=== PATIENT | male | born 2005 | race Asian ===

== ENCOUNTER 2023-04-04 02:23 | Outpatient (CLI) | payer BC, SELFPAY | END 2023-04-04 02:24 | disposition home or self-care (01) | LOC: AMB 04-07 12:06 | PROVIDERS: Visit Provider Family Medicine | DX: G40.909 Epilepsy, unspecified, not intractable, without status epilepticus (principal) | CPT/HCPCS: A0425; A0427 ==

== ENCOUNTER 2023-04-04 02:48 | Emergency (ER) | payer BC, SELFPAY ==
[2023-04-04 02:54] VITALS: BP 138/71; PULSE 105; RESP 20; TEMP 36.7; O2SAT 97; BMI 21.6
--- NOTE | 2023-04-04 03:13 | CRLHL7_ITS ---
For Patients: As a result of the Century Cures Act, medical imaging exams and procedure reports are released immediately into your electronic medical record. You may view this report before your referring provider. If you have questions, please contact your health care provider. Indication: Trauma related to seizure activity. Technique: CT of the facial bones was performed. Imaging was acquired in the axial plane. Contrast was not administered. Imaging was acquired from above the frontal sinuses through below the hyoid bone. Sagittal and coronal reformatted imaging was performed. Please note that all CT scans at this facility use dose modulation, iterative reconstruction, and/or weight-based dosing when appropriate to reduce radiation dose to as low as reasonably achievable. Comparison: None Findings: There is a comminuted displaced fracture of the right mandibular condyle, head and neck. No additional fractures are identified. The globes are intact. There is minor incidental paranasal sinus mucosal inflammatory disease Impression: 1. There is a comminuted displaced fracture of the right mandibular condyle, head and neck. No additional fractures. 2. Mild chronic appearing paranasal sinus mucosal inflammatory disease. Please note that all CT scans at this facility use dose modulation, iterative reconstruction, and/or weight-based dosing when appropriate to reduce radiation dose to as low as reasonably achievable. Dictated by Rambo Bullock MD @ 04/04/2023 4:02:28 AM (Electronically Signed)
--- NOTE | 2023-04-04 03:17 | ED.GENADULT ---
HPI - General Adult General Chief complaint: Seizure Stated complaint: seizure Time Seen by Provider: 04/04/23 02:58 Source: patient and EMS Mode of arrival: EMS History of Present Illness HPI narrative: 17-year-old male with known previous history of seizure disorder presents to the emergency department after what appears to have been a seizure while in the shower. Other members of his dorm found him on the ground, confused with of bloodied chin and lip. Patient reports that he has not taken his seizure medications since Friday which is 4 days ago. His 1st seizure was in 2018, his seizures may be set off by excessive heat per his report. He has been fully evaluated for the seizures including by Neurology, has had an EEG and CT scan per his description. He has been on the Lamictal since original diagnosis and reports that he has been on escalating doses, under the management of his neurologist. He does not give me clear rationale as to why he stopped taking his medication other than he just seems to have for gotten. His father was on the phone at the time and it seemed as though patient was trying to be discrete. I will re-approached the subject. He denies any fevers, neck pain, no recent illness that may have set things off. He was noted to be confused by the other members of his dorm but this was already improving significantly by the time of EMS arrival. Patient states that he feels a little foggy now but is overall feeling much better. He does note a cut to the bottom of his chin, a bit on the lower left lip as well and a gash out of his right forearm. No back pain, no neck pain, no headache. He does have a little bit of tenderness opening his jaw and notes some swelling to his right cheek area as well. No vision changes, no difficulty moving his eyes, no numbness tingling or other neurological deficits. Denies alcohol or drug use. Has been eating and drinking well. Past medical history notable for seizure disorder, home meds are Lamictal 150 mg twice daily and Zoloft 50 mg once daily. He is from [facility], no recent pertinent travel. No known illness exposures. ROS notable for the skin, HEENT and neurological changes as described above. Otherwise denies times 12 systems. Related Data Home Medications Medication Instructions Recorded Confirmed lamotrigine 150 mg tablet 150 mg PO BID 04/04/23 04/04/23 (Lamictal) sertraline 50 mg tablet (Zoloft) 50 mg PO DAILY 04/04/23 04/04/23 Previous Rx's Medication Instructions Recorded chlorhexidine gluconate 0.12 % 15 ml buccal BID #240 mL 04/04/23 mouthwash (Paroex Oral Rinse) Allergies Allergy/AdvReac Type Severity Reaction Status Date / Time No Known Drug Allergies Allergy Verified 04/04/23 02:57 PFSH PFS Medical History Anxiety ?F41.9 - Anxiety disorder, unspecified (ICD-10) Epilepsy ?G40.909 - Epilepsy, unspecified, not intractable, without status epilepticus (ICD-10) Social History Smoking Status: Current every day smoker Do you use any of these nicotine containing products: Vaping Products Second hand tobacco smoke exposure: Yes How often do you have a drink containing alcohol: never How often do you have six or more drinks on one occasion: Never AUDIT-C Alcohol total score: 0 Non-prescribed substance use: marijuana (any form) Exam Const: Vital Signs, click to edit/add: Vital Signs - 24 hr 04/04/23 02:54 04/04/23 03:18 04/04/23 04:18 Temperature 98.0 F 98.0 F Pulse Rate [Right Pulse Oximeter] 105 H 84 Respiratory Rate 20 20 Blood Pressure [Ri ght Upper Arm] 138/71 125/81 Pulse Oximetry 97 98 98 Oxygen Delivery Me thod Room Air Room Air Documenting provider has reviewed patient's vital signs: yes Common normals: no apparent distress, oriented x3 and alert Orientation/consciousness: Yes awake Other: Friendly and cooperative. Does seem mildly mentally foggy but has good insight into this and clarifies his answers when needed such as his Lamictal dosing and timing. HENMT: Common normals: normocephalic and TM's normal bilaterally Head and scalp: normocephalic Tympanic membrane: TM's normal bilaterally Other: Jaw does open with much difficulty and close though tender, without crepitus, but with significant difficulty. Mandible feels intact, but very tender on the right side There is a subtle dental fracture of the left upper central incisor, only the bottom 5% of the tooth. No root exposed. Superficial gash is, non bleeding on the sides of the tongue. 3 mm hemostatic laceration to the inner lip. 3 mm laceration, not through and through to the outer lip, oozing slightly. 3.5 cm diagonal laceration, full skin thickness to the underside of the chin. Gapes to about 6 mm with facial movement. Swelling of the right zygomatic arch with point bony tenderness extending into the right orbital area. Extraocular movements are fully intact. Eye: Common normals: PERRL, EOMs intact bilaterally and conjunctivae normal General eye: normal appearance of both eyes Conjunctiva: conjunctiva(e) normal Pupil: PERRL Neck & C-Spine: Common normals: full ROM and no lymphadenopathy Cervical spine: cervical ROM normal; no cervical spine tenderness Chest: Common normals: inspection of chest normal Resp: Common normals: normal respiratory effort, no use of accessory muscles and clear to auscultation bilaterally Effort & inspection: able to speak in complete sentences Auscultation: clear to auscultation bilaterally Cardio: Common normals: regular rate, regular rhythm, S1 normal heart sound, S2 normal heart sound and no murmurs Rate: regular rate Rhythm: regular rhythm Heart sounds: S1 normal and S2 normal GI: Common normals: Normal to inspection, nondistended, normoactive bowel sounds present, soft to palpation, non-tender, no hepatosplenomegaly and no masses Palpation: soft and no hepatosplenomegaly Back & Pelvis: Common normals: thoracic and lumbar spine normal to inspection and no thoracic nor lumbar tenderness Extremity: Common normals: normal to inspection, full ROM and normal capillary refill Other: Wrists, elbows, shoulders, knees and ankle seem to move without difficulty. There is a dime-sized round laceration, hemostatic to the right forearm. No other areas of joint swelling or point bony tenderness Neuro: [place] Coma Scale: document GCS findings [place] coma scale eye opening: Spontaneous (4) [place] coma scale verbal response: Orientated (5) [place] coma scale motor response: Obey commands (6) [place]ige coma scale total score: 15 Common normals: oriented x3 and CN's II-XII intact bilaterally Sensorium/orientation: awake and alert Speech: speech normal Motor exam: strength 5/5 throughout, no tremor noted and no movement abnormalities noted Psych: Common normals: speech normal Attitude: calm and engaged Activity/motor behavior: appropriate eye contact Speech: normal speech Insight: insight good Judgement: judgment good Skin: Narrative: Lacerations to the chin, right forearm, left lip, inner mouth and multiple other small abrasions as described above. Course Course ED Course: Seizure in patient with known seizure disorder who has been noncompliant with medications. No signs of intoxication. Mildly postictal concern for underlying facial fractures. Will need suture to chin laceration and wound care to other areas. Recommend basic labs, basic metabolic panel, CBC, LDH and lactate level as well as ethanol level. Will give 200 mg of p.o. Lamictal x1. Facial bone CT. Await findings. Reevaluation(s) Time of Reevaluation #1: 04:05 Reevaluation #1: Patient back from CT. Images quickly reviewed showing right mandibular fracture. Attention turned to lacerations. In her mouth lacerations are examined and determined that closure is not going to be beneficial, these are hemostatic. Discussed management of the dental fracture with outpatient dentist at patient's convenience. After cleansing, there is a more visible laceration of the left lower lip area that is 4 mm long but it does go through the vermilion border and gapes about 2 mm. This is stretched to reapproximate in the direction of the wound and Dermabond is applied for better cosmetic outcome. Came together nicely. Procedure: Chin laceration repair. 3.5 cm laceration is re-examined, cleansed with alcohol wipe and injected with 2 mL of 1% lidocaine with epinephrine for good anesthesia. Cleansed with Betadine x3, no foreign body identified. Under sterile technique, 4 simple interrupted 4-0 Monocryl sutures were placed with good cosmetic closure and hemostasis. Well tolerated. Covered with antibiotic ointment and large Band-Aid. I then turned attention to management of the mandibular fracture. Initially calling [facility], after intake, it was determined that no beds were available. Attention was then turned to regions. Ultimately I was able to speak with or facial specialty on-call. They reviewed the radiologist's interpretation and clinical exam with me. They recommend outpatient follow-up and have provided appropriate phone number to schedule this in the morning. Patient will need to be seen at their outpatient plastics clinic next week. They recommend Peridex mouthwash twice daily. Even though he does have open lacerations they are distant enough away from the fracture site that this should not be treated as an open fracture. Discussed liquid diet, use of straws, pain management. 40 minutes were spent in phone consult is and coordination of care. I discussed the dental fracture, management of lacerations, outpatient management of the mandibular fracture, seizure management with patient. Extensive keam-hx-anlb conversations were had regarding all of these things. Recommendations for maintaining hydration,. Foods, large caliber straws, pain control were all discussed. Will use Tylenol primarily for pain, prescription given for Toradol. Limited supply of oxycodone given as well. Did receive ibuprofen and 5 mg of oxycodone prior to leaving the ED with good results. We were able to get hold of the [facility] and he will help further coordinate the patient's needs. Patient was given the phone number for scheduling with the plastics clinic in writing. He will take another 200 mg of Lamictal this evening to help catch up and get to steady state faster. He will resume typical dosing Friday morning. See discharge instructions. Vital Signs Vital signs: Initial Vital Signs Respiratory Effort Normal, Spontaneous, Non-Labored 04/04/23 02:53 Respiratory Depth Normal 04/04/23 02:53 Respiratory Pattern Normal 04/04/23 02:53 Vital Signs Temperature 98.0 F 04/04/23 02:54 Pulse Rate 105 H 04/04/23 02:54 Respiratory Rate 20 04/04/23 02:54 Blood Pressure 138/71 04/04/23 02:54 Pulse Oximetry 97 04/04/23 02:54 Oxygen Delivery Method Room Air 04/04/23 02:54 Temperature 98.0 F 04/04/23 04:18 Pulse Rate 84 04/04/23 04:18 Respiratory Rate 20 04/04/23 04:18 Blood Pressure 125/81 04/04/23 04:18 Pulse Oximetry 98 04/04/23 04:18 Oxygen Delivery Method Room Air 04/04/23 04:18 Medications Administered Medications: Generic Name Dose Route Start Last Admin Trade Name Freq PRN Reason Stop Dose Admin Ibuprofen 600 mg 04/04/23 03:25 04/04/23 03:29 Ibuprofen 200 Mg Tablet PO 04/04/23 03:26 600 mg ONCE ONE Administration Lamotrigine 200 mg 04/04/23 03:13 04/04/23 03:29 Lamotrigine 100 Mg Tablet PO 04/04/23 03:14 200 mg ONCE ONE Administration Oxycodone HCl 5 mg 04/04/23 04:29 04/04/23 04:36 Oxycodone 5 Mg Tablet PO 04/04/23 04:30 5 mg ONCE ONE Administration Medical Decision Making Lab Data Lab results reviewed: Yes I reviewed the patient's lab results Lab results narrative: Reassuring Labs: Lab Results 04/04/23 Range/Units 03:30 WBC 14.35 H (4.50-11.00) K/uL RBC 4.86 (4.30-5.90) m/uL Hgb 14.7 (13.5-17.5) gm/dL Hct 43.2 (37.0-53.0) % MCV 89 (80-100) fL MCH 30 (26-34) pg MCHC 34 (32-36) gm/dL RDW Coeff of Ab 11.7 (11.5-15.5) % Plt Count 303 (140-440) K/uL Neut % (Auto) 71.0 (42.0-72.0) % Lymph % (Auto) 21.3 (20-44) % [place] % (Auto) 5.8 (0.0-11.0) % Eos % (Auto) 0.7 (0.0-7.0) % Baso % (Auto) 0.2 (0.0-3.0) % Neut # (Auto) 10.20 H (1.7-7.0) K/uL Lymph # (Auto) 3.10 H (0.90-2.90) K/uL [place] # (Auto) 0.80 (0.00-0.90) K/UL Eos # (Auto) 0.10 (0.00-0.50) K/uL Baso # (Auto) 0.00 (0.00-0.30) K/uL Abs Immat Gran (auto) 0.10 (0.00-0.30) K/uL Imm/Tot Granulo (auto) 1.0 % Sodium 142 (135-149) mmol/L Potassium 3.4 L (3.6-5.1) mmol/L Chloride 108 (96-114) mmol/L Carbon Dioxide 20 (20-32) mmol/L Anion Gap 14 (7-15) mEq/L BUN 14 (5-24) mg/dL Creatinine 0.8 (0.6-1.2) mg/dL Estimated Creat Clear 123.87 Estimated GFR 131 ml/min Glucose 151 H (60-115) mg/dL Lactate 3.7 H (0.5-1.9) mmol/L Calcium 9.7 (8.7-10.8) mg/dL Lactate Dehydrogenase 209 (120-246) U/L Ethyl Alcohol < 0.01 L (0.01-0.03) % Imaging Data CT- Other: Attestation: I have reviewed the pertinent imaging results. My impression: Facial CT, mandibular fracture of right side Radiologist's impression: Impression: 1. There is a comminuted displaced fracture of the right mandibular condyle, head and neck. No additional fractures. 2. Mild chronic appearing paranasal sinus mucosal inflammatory disease. Discharge Plan Discharge Clinical Impression: Mandibular fracture, closed, Chin laceration, Laceration of lip, Abrasion, multiple sites Patient Disposition: Home w/ Parent or Adult Condition: Stable Instructions: Jaw Fracture in Adults (ED) Additional Instructions: As we discussed, there are several injuries from your seizure and fall. The 1st and most important is the fracture of your right mandible, also known as your upper right jaw. This will need follow-up with a specialist. I have spoken with them nunu from [facility] and they want you to be seen in clinic next week. In the daylight hours this morning, you need to call: [phone]. This is the plastic surgery and facial clinic. The provider on-call says that you need to be worked in next week for evaluation. This may require surgery, wiring or other additional intervention. We will give you a CD of your CT scan images to take with you. Unfortunately, this will be painful. You will take Tylenol 1000 mg every 6 hours as needed for pain. I am giving a prescription for Toradol, a medication very similar to ibuprofen. You may take 1 tablet every 6 hours as needed for pain. Once this is gone, you may switch to 600 mg ibuprofen which is available [id number]. Do not use both the ibuprofen and Toradol the same time, but you may combine Tylenol and either of the medications. I will also give a prescription for some stronger pain medicine, some oxycodone. As we discussed, this can be habit-forming so try to use it as little as possible. I am hoping that you will only needed at night. You will not be able to chew, therefore you will only be on liquid, blended food of a pureed consistency. It is important that you continue drinking lots of liquids, aim for about 40 oz per day. Most of the time, it is easier to use a large caliber strong like a smoothie straw. A small, portable rougher operator can be very helpful to puree foods. Yogurt, cream soups, diluted mashed potatoes, smoothies are often good places to start. I have sent a prescription for a special antibacterial mouthwash for you to use twice daily. This was recommended by the facial surgeon. Pick this up at the pharmacy and swish with it twice daily. Use this after you brush your teeth. Be careful when brushing your teeth, try not to open your jaw very wide. Second, this seizure happened because you had missed several doses of your medications. Your given 200 mg of Lamictal here in the emergency department. He will take 200 mg at bedtime tonight. Starting Friday morning, you will resume your typical doses. Try not to miss so many doses or you will have breakthrough seizures again. Third, you have multiple abrasions and lacerations from the fall. All of the cuts on the inside of your mouth will close on their own within 1-2 days. [place] foods will cause a burning feeling better not dangerous. There is glue applied to 1 of the outer lip lacerations, this will flake off on its own within a week or so. You have 4 stitches placed under your chin to your largest laceration. It has been covered in antibiotic ointment and a Band-Aid. Try to leave this on for the next 24 hours. After 24 hours, you may remove the Band-Aid, wash gently with soap and water, pat dry and reapply antibiotic ointment and a new Band-Aid every 24 hours. Please make an appointment to have the stitches removed in 7-9 days. [facility] at [facility]. The laceration on your forearm was covered with antibiotic ointment and a Band-Aid. Treat it similarly to the stitches but it will not need any additional provider care and will heal on its own within a few days. Fourth, sleep may be difficult due to pain. It is okay to use melatonin 10 mg at bedtime and or Benadryl 25 mg at bedtime to help you sleep. This will not interfere with your injuries or any of your other medications. No alcohol or any other illicit drugs until this jaw heals, this will take a couple of months. Fifth, you have a slight fracture of the left upper central incisor tooth. This will need follow-up with a dentist when the more pressing matters have been addressed. Activity Level: Light activity Diet Detail: pureed Prescriptions: New chlorhexidine gluconate [Paroex Oral Rinse] 0.12 % mouthwash 15 ml buccal BID Qty: 240 1RF Rx Instructions: swish and spit 2x per day No Action lamotrigine [Lamictal] 150 mg tablet 150 mg PO BID sertraline [Zoloft] 50 mg tablet 50 mg PO DAILY Follow Up/Referrals: nadira souza [Other] (per physician, needs appt in 3-9 days) Provider,Not a Local [Primary Care Provider] - Stand Alone Forms: [employer] Info Instructions
[2023-04-04 03:18] VITALS: O2SAT 98
[2023-04-04] MEDS: lamoTRIgine 100 MG TABLET 200 MG PO (03:29)
[2023-04-04] MEDS: IBUPROFEN 200 MG TABLET 600 MG PO (03:29)
[2023-04-04 03:36] LABS: Lactate* 3.7 mmol/L (0.5-1.9)
[2023-04-04 03:38] LABS: Basophils Percent Auto 0.2 % (0.0-3.0); Eosinophils Percent Auto 0.7 % (0.0-7.0); Hematocrit 43.2 % (37.0-53.0); Hemoglobin* 14.7 gm/dL (13.5-17.5); Lymphocytes Percent Auto 21.3 % (20-44); Mean Corpuscular HGB Conc 34 gm/dL (32-36); Mean Corpuscular Hemoglobin 30 pg (26-34); Mean Corpuscular Volume 89 fL (80-100); Monocytes Percent Auto 5.8 % (0.0-11.0); Platelet Count* 303 K/uL (140-440); RDW Coefficient of Variation % 11.7 % (11.5-15.5); Red Blood Count 4.86 m/uL (4.30-5.90); White Blood Count* 14.35 K/uL (4.50-11.00)
[2023-04-04 03:42] LABS: Slide Review Reflex No
[2023-04-04 03:51] LABS: Chloride* 108 mmol/L (96-114); Potassium* 3.4 mmol/L (3.6-5.1); Sodium* 142 mmol/L (135-149)
[2023-04-04 03:53] LABS: Creatinine* 0.8 mg/dL (0.6-1.2); Est. Creatinine Clearance* 123.87; Estimated Glomerular Filt Rate 131 ml/min; Lactate Dehydrogenase* 209 U/L (120-246)
[2023-04-04 03:54] LABS: Anion Gap 14 mEq/L (7-15); Blood Urea Nitrogen* 14 mg/dL (5-24); Calcium* 9.7 mg/dL (8.7-10.8); Carbon Dioxide* 20 mmol/L (20-32); Glucose* 151 mg/dL (60-115)
[2023-04-04 03:55] LABS: Ethanol* < 0.01 % (0.01-0.03)
[2023-04-04 04:18] VITALS: BP 125/81; PULSE 84; RESP 20; TEMP 36.7; O2SAT 98
[2023-04-04] MEDS: OXYCODONE 5 MG TABLET PO (04:36)
[2023-04-04 05:12] VITALS: BP 125/81; PULSE 84; RESP 20; TEMP 36.7
== END 2023-04-04 05:12 | disposition home or self-care (01) ==
PROVIDERS: Emergency Provider Family Medicine
DX: R56.9 Unspecified convulsions (principal); S01.81XA Laceration without foreign body of other part of head, initial encounter
CPT/HCPCS: 12013; 36415; 70486; 80048; 82077; 83605; 83615; 85025; 94761; 99284; A9270

== ENCOUNTER 2025-01-18 04:00 | Emergency (ER) | payer BC, SELFPAY ==
[2025-01-18] VITALS (51 sets, daily range): BP systolic 102–143; BP diastolic 55–80; PULSE 78–144; RESP 10–25; TEMP 36.2; O2SAT 92–100; BMI 22.5
[2025-01-18] MEDS: diazePAM 5 MG/ML inj IM (04:02)
--- OUTSIDE RECORDS SUMMARY | 2025-01-18 04:02 | XMS_ITS | Clinical Summary ---
Author Organization [facility] Address [address] [place] [id number] Care Team Providers Care Engineer Soils Name Role Phone None, Pcp MD Primary Care Provider Unavailabl e Allergies No known active allergies Medications lamoTRIgine (LaMICtal) 25 mg tablet Take 1 tablet (25 mg total) by mouth in the morning and 1 tablet (25 mg total) before bedtime. 60 tablet 11/14/2023 Active Social History Tobacco Use Types Packs/Day Years Used Date Smoking Tobacco: Never Assessed Sex and Gender Information Value Date Recorded Sex Assigned at Not on file Legal Sex Male 10:56 AM EDT Gender Identity Not on file Sexual Orientation Not on file Last Filed Vital Signs Vital Sign Reading Time Taken Comments Blood Pressure 128/69 11/14/2023 9:35 PM EDT Pulse 89 11/14/2023 9:35 PM EDT Temperature 36.6 C (97.8 F) 11/14/2023 9:35 PM EDT Respiratory Rate 18 11/14/2023 9:35 PM EDT Oxygen Saturation 97% 11/14/2023 9:35 PM EDT Inhaled Oxygen Concentration - - Weight - - Height - - Body Mass Index - - Plan of Treatment Health Maintenance Due Date Last Done Comments HIV Screening 2003 Hepatitis C Screening 2003 HPV Vaccines (1 - Male 3-dose series) 2018 Hepatitis B Vaccines (1 of 3 - 19+ 3-dose series) 2022 DTaP,Tdap,and Td Vaccines (2 - Td or Tdap) 06/09/2023 06/08/2013 COVID-19 Vaccine ( season) 2024 03/18/2021, 08/10/2020, 07/20/2020 Influenza Vaccine (#1) 2024 3, 01/14/2021, 12/21/2019, Additional history exists Pneumococcal 50+ (1 of 1 - PCV) 2053 Respiratory Syncytial Virus (RSV) Immunizations HM Topic for 60 years or older & patients (1 - 1-dose 75+ series) 2078 Meningococcal Vaccine Completed 11/17/2020, 015 HIB Vaccines Aged Out No longer eligi ble based on patient's age to complete this topic Hepatitis A Vaccines Aged Out No long er eligible based on patient's age to complete this topic IPV Vaccines Aged Out No longer eligi ble based on patient's age to complete this topic Pneumococcal 0-49 yrs Aged Out No nic donell eligible based on patient's age to complete this topic Respiratory Syncytial Virus (RSV) Immunizations HM Topic (Under 20 months) Aged Out No longer eligible based on patient's age to complete this topic Insurance [facility] NON FEDERAL PPO Care Teams Engineer Soils Relationship Specialty Start Date End Date None, Pcp, PCP - General 11/14/23
--- OUTSIDE RECORDS SUMMARY | 2025-01-18 04:02 | XMS_ITS | Encounter Summary ---
Author Organization [employer] [facility] Address [address] [place] [address] Phone Care Team Providers Care Metal Burrer Name Role Phone Mervat Valdez MD Primary Care Provider [phone] Encounter Details Date Type Department Care Team (Late st Contact Info) Description 03/17/2018 Procedure Pass [facility] [address] [place] [id number] Social History Tobacco Use Types Packs/Day Years Used Date Smoking Tobacco: Never Smokeless Tobacco: Never Alcohol Use Standard Drinks/Week Comments No 0 (1 standard drink = 0.6 oz pur e alcohol) Sex and Gender Information Value Date Recorded Sex Assigned at Not on file Legal Sex Male 6:02 PM EDT Gender Identity Not on file Sexual Orientation Not on file documented as of this encounter Plan of Treatment Not on file documented as of this encounter Visit Diagnoses Not on filedocumented in this encounter Care Teams Metal Burrer Relationship Specialty Start Date End Date Mervat Valdez MD [address] PCP - General Pediatrics 12/29/17 documented as of this encounter
--- OUTSIDE RECORDS SUMMARY | 2025-01-18 04:02 | XMS_ITS | Encounter Summary ---
Author Organization [employer] [facility] Address [address] [place] [address] Phone Care Team Providers Care Personal Secretary Name Role Phone Mervat Valdez MD Primary Care Provider [phone] Encounter Details Date Type Department Care Team (Late st Contact Info) Description 06/23/2024 Scan Only [facility] [address] [place] [address] Kanchan Cross MA Social History Tobacco Use Types Packs/Day Years Used Date Smoking Tobacco: Never Passive Smoke Exposure: Never Smokeless Tobacco: Never Alcohol Use Standard [...] Diagnoses Not on filedocumented in this encounter Additional Health Concerns Assessment Noted Time PHQ-9 Depression Total Score: 2 10/19/19 19 9:00 PM EDT documented as of this encounter Care Teams Personal Secretary Relationship Specialty Start Date End Date Mervat Valdez MD [address] PCP - General Pediatrics 12/29/17 documented as of this encounter
--- OUTSIDE RECORDS SUMMARY | 2025-01-18 04:02 | XMS_ITS | Encounter Summary ---
Author Organization [employer] [facility] and [facility] Address [address] [place] [address] Phone Care Team Providers Care Tower Dragline Operator Name Role Phone Mervat Valdez MD Primary Care Provider [phone] Encounter Details Date Type Department Care Team (Late st Contact Info) Description 12/15/2024 Scan Only [facility] [address] [facility] [address] [place] [address] Kanchan Cross MA Social History [...] documented as of this encounter Care Teams Tower Dragline Operator Relationship Specialty Start Date End Date Mervat Valdez MD [address] PCP - General Pediatrics 12/29/17 documented as of this encounter
--- OUTSIDE RECORDS SUMMARY | 2025-01-18 04:02 | XMS_ITS | Encounter Summary ---
Author Organization [employer] [facility] and [facility] Address [address] [place] [address] Phone Care Team Providers Care Beaming Inspector Name Role Phone Mervat Valdez MD Primary Care Provider [phone] Reason for Visit * Reason Comments Medication Refill Encounter Details Date Type Department Care Team (Late st Contact Info) Description 12/29/2024 Refill [facility] [place] [address] [facility] [address] [place] [phone] Ingris Martinez EDGE GRINDER MACHINE [address] [facility] 300 [place] [address] Social History Tobacco Use Types Packs/Day Years [...] documented as of this encounter Care Teams Beaming Inspector Relationship Specialty Start Date End Date Mervat Valdez MD [address] [facility] [address] [place], [place] PCP - General Pediatrics 12/29/17 documented as of this encounter
--- OUTSIDE RECORDS SUMMARY | 2025-01-18 04:02 | XMS_ITS | Encounter Summary ---
Author Organization [employer] [facility] and [facility] Address [address] [place] [address] Phone Care Team Providers Care Cisco Certified Network Associate Name Role Phone Mervat Valdez MD Primary Care Provider [phone] Encounter Details Date Type Department Care Team (Late st Contact Info) Description 11/01/2024 Patient Message [facility] [address] [facility] [address] [place] [phone] Ingris Martinez DELIVERY DIRECTOR [address] [facility] 300 [place] [address] Social History Tobacco Use Types Packs/Day Years [...] documented as of this encounter Care Teams [employer] Certified Network Associate Relationship Specialty Start Date End Date Mervat Valdez MD [address] PCP - General Pediatrics 12/29/17 documented as of this encounter
--- OUTSIDE RECORDS SUMMARY | 2025-01-18 04:02 | XMS_ITS ---
Author Name [employer] Organization Unknown Care Team Organization Name Specialty Phone Email Start Date End Da te [employer] Insurance 04/18/2021 Mervat Valdez Primary Care
--- OUTSIDE RECORDS SUMMARY | 2025-01-18 04:02 | XMS_ITS | Clinical Summary ---
Author Organization [employer] [facility] and [facility] Address [address] [place] [address] Phone Care Team Providers Care Hand Binder Cutter Name Role Phone Mervat Valdez MD Primary Care Provider [phone] Allergies No known active allergies Medications sertraline (ZOLOFT) 50 MG tablet Take 50 mg by mouth daily 2 Active lamoTRIgine (LaMICtal) 25 MG tablet 25 mg (with 150 mg tablet for total dose 175 mg) bid 180 tablet 3 5 Active lamoTRIgine (LaMICtal) 150 MG tablet Take 1 tablet (150 mg) by mouth 2 (two) times daily 180 tablet 3 5 Active cloNIDine (CATAPRES) 0.1 MG tablet TAKE 1 TABLET (0.1 MG) BY MOUTH NIGHTLY 90 tablet 1 5 Active cloNIDine (CATAPRES) 0.1 MG tablet Take 1 tablet (0.1 mg) by mouth nightly 30 tablet 5 5 12/30/19 25 Discontinued Active Problems Problem Noted Date Diagnosed Date Adjustment disorder with depressed mood 09/10/19 19 Nonintractable generalized i diopathic epilepsy without status epilepticus 04/17/2018 Seizure 03/17/2018 Encounters Date Type Department Care Team Description 12/29/2024 Refill [facility] [address] [address] Ingris Martinez NP 12/15/2024 Scan Only [facility] [address] [address] Kanchan Cross MA 11/22/2024 Patient Message [facility] [address] [place] [address] Ingris Martinez NP 11/01/2024 Patient Message [facility] [address] [place] [address] Ignris Martinez NP from Last 3 Months Family History * Patient is adopted Medical History Relation Name Comments Cancer Mother Relation Name Status Comments Father Alive Mother Brain tumor; de ceased August 2017 Sister Alive Social History Tobacco Use Types Packs/Day Years Used Date Smoking Tobacco: Never Passive Smoke Exposure: Never Smokeless Tobacco: Never Tobacco Cessation:Counseling Given: Not Answered Alcohol Use Standard Drinks/Week Comments No 0 (1 standard drink = 0.6 oz pur e alcohol) Sex and Gender Information Value Date Recorded Sex Assigned at Not on file Legal Sex Male 6:02 PM EDT Gender Identity Not on file Sexual Orientation Not on file Last Filed Vital Signs Vital Sign Reading Time Taken Comments Blood Pressure 109/67 02/17/2019 9:26 AM EST Pulse 92 02/17/2019 9:26 AM EST Temperature 36.6 C (97.8 F) 11/17/2018 9:50 AM EDT Respiratory Rate 19 12/29/2017 8:23 PM EDT Oxygen Saturation 100% 02/17/2019 9:26 AM EST Inhaled Oxygen Concentration - - Weight 61.2 kg (135 lb) 06/22/2024 3:05 PM EDT Height 163.6 cm (5' 4.41) 02/17/2019 9:26 AM ES T Body Mass Index - - Plan of Treatment Not on file Insurance [facility] P[facility] [employer] BC[employer] PPO [employer] PPO [employer] PPO [employer] PPO [employer] PPO Care Teams Hand Binder Cutter Relationship Specialty Start Date End Date Mervat Valdez MD [address] PCP - General Pediatrics 12/29/17
--- OUTSIDE RECORDS SUMMARY | 2025-01-18 04:02 | XMS_ITS | Encounter Summary ---
Author Organization [employer] [facility] and [facility] Address [address] [place] [address] Phone Care Team Providers Care Compensation Adjuster Name Role Phone Mervat Valdez MD Primary Care Provider [phone] Encounter Details Date Type Department Care Team (Late st Contact Info) Description 06/23/2024 Patient Message [facility] [address] [place] [address] [address] [place] [address] Kanchan Cross MA Social History [...] documented as of this encounter Care Teams Compensation Adjuster Relationship Specialty Start Date End Date Mervat Valdez MD [address] PCP - General Pediatrics 12/29/17 documented as of this encounter
--- OUTSIDE RECORDS SUMMARY | 2025-01-18 04:02 | XMS_ITS | Encounter Summary ---
Author Organization [employer] [facility] and [facility] Address [address] [place] [address] Phone Care Team Providers Care Hyperion Developer Name Role Phone Mervat Valdez MD Primary Care Provider [phone] Reason for Visit * Reason Comments Medication Refill Encounter Details Date Type Department Care Team (Late st Contact Info) Description 12/27/2023 Refill [facility] [place] [address] [facility] [address] [place] [phone] Ingris Martinez FIRE ENGINEER 30[address] [facility] 300 [place] [address] Social History Tobacco Use Types Packs/Day Years [...] documented as of this encounter Care Teams Hyperion Developer Relationship Specialty Start Date End Date Mervat Valdez MD [address] [facility] [address] [place], [place] PCP - General Pediatrics 12/29/17 documented as of this encounter
--- OUTSIDE RECORDS SUMMARY | 2025-01-18 04:02 | XMS_ITS | Encounter Summary ---
Author Organization [employer] [facility] and [facility] Address [address] [place] [address] Phone Care Team Providers Care Style Advisor Name Role Phone Mervat Valdez MD Primary Care Provider [phone] Encounter Details Date Type Department Care Team (Late st Contact Info) Description 06/02/2024 Patient Message [facility] [address] [facility] [address] [place] [phone] Miky Alvarez MD [address] [facility] 300 [place] [address] Social History Tobacco Use Types Packs/Day Years [...] documented as of this encounter Care Teams Style Advisor Relationship Specialty Start Date End Date Mervat Valdez MD [address] [facility] [address] [place], [place] PCP - General Pediatrics 12/29/17 documented as of this encounter
--- OUTSIDE RECORDS SUMMARY | 2025-01-18 04:02 | XMS_ITS | Encounter Summary ---
Author Organization [employer] [facility] and [facility] Address [address] [place] [address] Phone Care Team Providers Care Violin Tutor Name Role Phone Mervat Valdez MD Primary Care Provider [phone] Encounter Details Date Type Department Care Team (Late st Contact Info) Description 11/22/2024 Patient Message [facility] [address] [facility] [address] [place] [phone] Ingris Martinez MAKE UP OPERATOR [address] [facility] 300 [place] [address] Social History Tobacco Use Types Packs/Day Years [...] documented as of this encounter Care Teams Violin Tutor Relationship Specialty Start Date End Date Mervat Valdez MD [address] PCP - General Pediatrics 12/29/17 documented as of this encounter
--- NOTE | 2025-01-18 04:43 | ED.GENADULT ---
HPI - General Adult General Chief complaint: Seizure Stated complaint: seizure Time Seen by Provider: 01/18/25 04:04 Source: patient Mode of arrival: ambulatory Limitations: no limitations History of Present Illness HPI narrative: 19-year-old male presenting to the ED today secondary to seizure. Patient was accompanying his friend to the ER was having a mental health crisis. While in the room with his friend patient began seizing. Patient had a grand mall seizure for approximately 2 minutes. We did give him IM diazepam. He was postictal for a short period of time. He did not lose bowel or bladder control. Did not bite his tongue. Upon clearing, patient states that he has a history of epilepsy and takes daily Lamictal. He states that lack of sleep and excessive heat are triggers for his seizures. He denies skipping his medications or any drug use. He states that his last seizure was just over 1 year ago. Patient is a senior at [employer]. Related Data Home Medications ?Medication ?Instructions ?Recorded ?Confirmed lamotrigine 150 mg tablet 150 mg PO BID 04/04/23 04/04/23 (Lamictal) sertraline 50 mg tablet (Zoloft) 50 mg PO DAILY 04/04/23 04/04/23 Previous Rx's ?Medication ?Instructions ?Recorded chlorhexidine gluconate 0.12 % 15 ml buccal BID #240 mL 04/04/23 mouthwash (Paroex Oral Rinse) Allergies Allergy/AdvReac Type Severity Reaction Status Date / Time No Known Drug Allergies Allergy Verified 04/04/23 02:57 Review of Systems Status of ROS: Reports: 10 or more systems reviewed and unremarkable except as noted in History and below PFSH [facility] Medical History Anxiety ?F41.9 - Anxiety disorder, unspecified (ICD-10) Epilepsy ?G40.909 - Epilepsy, unspecified, not intractable, without status epilepticus (ICD-10) Social History Smoking Status: Current every day smoker Do you use any of these nicotine containing products: Vaping Products Second hand tobacco smoke exposure: Yes How often do you have a drink containing alcohol: never How often do you have six or more drinks on one occasion: Never AUDIT-C Alcohol total score: 0 Non-prescribed substance use: marijuana (any form) service: No Exam Narrative: Exam Narrative: Well-nourished well-developed patient in no acute distress. Alert and oriented x3. Answers questions appropriately. Mood and affect are appropriate. Thoughts are goal oriented and rational. No tangential or magical thinking noted. Patient speaks in full sentences without needing to catch his breath. GCS is 15. HEENT: Normocephalic atraumatic. Pupils are equally round reactive to light. Extraocular muscles are intact. Conjunctivae are moist without any icterus noted. Moist mucous membranes. Cardiovascular: Heart is regular rate and rhythm S1 and S2 are present without any murmurs. Lungs: Clear to auscultation bilaterally no wheezes rhonchi or rales are appreciated. Patient takes deep breaths without any discomfort. Abdomen: Soft and nontender nondistended with normal bowel sounds. Extremities: No evidence of trauma. Skin: Well perfused without any obvious rashes. Const: Vital Signs, click to edit/add: Vital Signs - 24 hr 01/18/25 04:00 01/18/25 04:00 01/18/25 04:09 Temperature 97.2 F L Pulse Rate 141 H Pulse Rate [Left P ulse Oximeter] 144 H Respiratory Rate 17 17 Blood Pressure 143/76 H Blood Pressure [Le ft Upper Arm] 140/68 H Pulse Oximetry 98 98 95 Oxygen Delivery [facility] Room Air 01/18/25 04:10 01/18/25 04:11 01/18/25 04:15 Temperature Pulse Rate 144 H 143 H 135 H Pulse Rate [Left P ulse Oximeter] Respiratory Rate 14 23 Blood Pressure 141/72 H Blood Pressure [Le ft Upper Arm] Pulse Oximetry 100 100 97 [facility] 04:16 01/18/25 04:21 01/18/25 04:26 Temperature Pulse Rate 134 H 128 H 116 H Pulse Rate [Left P ulse Oximeter] Respiratory Rate 22 15 Blood Pressure 141/80 H 118/74 110/61 Blood Pressure [Le ft Upper Arm] Pulse Oximetry 96 96 95 [facility] 01/18/25 04:30 01/18/25 04:31 01/18/25 04:37 Temperature Pulse Rate 120 H 117 H 107 H Pulse Rate [Left P ulse Oximeter] Respiratory Rate 10 L 10 L Blood Pressure 112/55 L 113/62 Blood Pressure [Le ft Upper Arm] Pulse Oximetry 96 96 93 Oxygen Delivery Me thod 01/18/25 04:41 01/18/25 04:45 01/18/25 04:47 Temperature Pulse Rate 103 H 101 H 100 Pulse Rate [Left P ulse Oximeter] Respiratory Rate 25 H 22 20 Blood Pressure 110/60 110/58 L Blood Pressure [Le ft Upper Arm] Pulse Oximetry 93 95 95 Oxygen Delivery Me thod 01/18/25 04:52 01/18/25 04:56 01/18/25 05:00 Temperature Pulse Rate 99 96 95 Pulse Rate [Left P ulse Oximeter] Respiratory Rate 23 20 20 Blood Pressure 111/63 113/64 Blood Pressure [Le ft Upper Arm] Pulse Oximetry 95 95 96 Oxygen Delivery Me thod 01/18/25 05:01 01/18/25 05:06 01/18/25 05:11 Temperature Pulse Rate 94 92 95 Pulse Rate [Left P ulse Oximeter] Respiratory Rate 19 19 19 Blood Pressure 112/66 111/67 112/66 Blood Pressure [Le ft Upper Arm] Pulse Oximetry 95 95 96 Oxygen Delivery Me thod 01/18/25 05:15 01/18/25 05:16 01/18/25 05:21 Temperature Pulse Rate 97 93 89 Pulse Rate [Left P ulse Oximeter] Respiratory Rate 16 14 20 Blood Pressure 113/72 113/70 Blood Pressure [Le ft Upper Arm] Pulse Oximetry 100 94 94 Oxygen Delivery Me thod 01/18/25 05:26 01/18/25 05:30 01/18/25 05:31 Temperature Pulse Rate 89 88 89 Pulse Rate [Left P ulse Oximeter] Respiratory Rate 19 20 19 Blood Pressure 114/70 112/70 Blood Pressure [Le ft Upper Arm] Pulse Oximetry 93 92 92 Oxygen Delivery Me thod 01/18/25 05:36 01/18/25 05:41 01/18/25 05:45 Temperature Pulse Rate 88 88 84 Pulse Rate [Left P ulse Oximeter] Respiratory Rate 20 20 21 Blood Pressure 112/72 115/71 Blood Pressure [Le ft Upper Arm] Pulse Oximetry 94 95 96 Oxygen Delivery Me thod 01/18/25 05:46 01/18/25 05:51 01/18/25 05:56 Temperature Pulse Rate 93 86 87 Pulse Rate [Left P ulse Oximeter] Respiratory Rate 17 18 19 Blood Pressure 110/76 110/74 110/78 Blood Pressure [Le ft Upper Arm] Pulse Oximetry 96 97 97 Oxygen Delivery Me thod 01/18/25 06:00 01/18/25 06:01 01/18/25 06:06 Temperature Pulse Rate 86 87 84 Pulse Rate [Left P ulse Oximeter] Respiratory Rate 20 20 20 Blood Pressure 111/79 112/75 Blood Pressure [Le ft Upper Arm] Pulse Oximetry 96 96 97 Oxygen Delivery Me thod 01/18/25 06:11 01/18/25 06:12 01/18/25 06:15 Temperature Pulse Rate 88 83 79 Pulse Rate [Left P ulse Oximeter] Respiratory Rate 18 17 18 Blood Pressure 109/77 Blood Pressure [Le ft Upper Arm] Pulse Oximetry 95 95 95 Oxygen Delivery Me thod 01/18/25 06:16 01/18/25 06:21 01/18/25 06:26 Temperature Pulse Rate 83 81 81 Pulse Rate [Left P ulse Oximeter] Respiratory Rate 18 19 18 Blood Pressure 109/74 108/71 108/75 Blood Pressure [Le ft Upper Arm] Pulse Oximetry 94 94 95 Oxygen Delivery Me thod 01/18/25 06:30 01/18/25 06:31 01/18/25 06:45 Temperature Pulse Rate 87 78 80 Pulse Rate [Left P ulse Oximeter] Respiratory Rate 17 22 20 Blood Pressure 111/76 Blood Pressure [Le ft Upper Arm] Pulse Oximetry 99 96 94 Oxygen Delivery Me thod 01/18/25 07:00 01/18/25 07:02 Temperature Pulse Rate Pulse Rate [Left P ulse Oximeter] Respiratory Rate 16 Blood Pressure 102/69 Blood Pressure [Le ft Upper Arm] Pulse Oximetry Oxygen Delivery Me thod Course Course ED Course: Post diazepam, patient had no more seizure activity. He was placed on a heart monitor and continuous pulse ox. Labs showed elevated white cell count at 19.8 with an elevated platelet count of 442. Normal sodium and potassium. Carbon dioxide low at 6, anion gap elevated at 32. Normal glucose levels, unremarkable LFTs. Protein and albumin both elevated. Patient did not leave a urine sample while he was here. IV established and patient is started on 1 L of normal saline. For approximately 1 minutes while on the cardiac cath technician patient through a very high number of PVCs. This lasted about 1 minute then he went back to normal sinus rhythm. His EKG, read by me, shows normal sinus rhythm with a pulse of 79, right word access. He has normal QRS QTC and MN intervals. During this minute of frequent PVCs, patient was asymptomatic. I did consult with Dr. Lafleur, neurology at [facility], who recommended that the patient follow-up with their neurologist and let them know what happened today so they can decide whether or not he should change his Lamictal dosage. Lamictal levels are a send out so we would not have that information today. I did speak to Alanna who stated that he had his levels checked a couple of months ago. He can not remember what they were. Vital Signs Vital signs: Initial Vital Signs Temperature 97.2 F L 01/18/25 04:00 Temperature Source Temporal Artery Scan 01/18/25 04:00 Pulse Rate 144 H 01/18/25 04:00 Pulse Rhythm Regular 01/18/25 04:00 Respiratory Rate 17 01/18/25 04:00 Respiratory Effort Normal, Spontaneous, Non-Labored 01/18/25 04:00 Respiratory Depth Normal 01/18/25 04:00 Respiratory Pattern Normal 01/18/25 04:00 Blood Pressure 140/68 H 01/18/25 04:00 Blood Pressure Mean 92 01/18/25 04:00 Blood Pressure Position Supine 01/18/25 04:00 Pulse Oximetry 98 01/18/25 04:00 Oxygen Delivery Method Room Air 01/18/25 04:00 Vital Signs Temperature 97.2 F L 01/18/25 04:00 Pulse Rate 144 H 01/18/25 04:00 Respiratory Rate 17 01/18/25 04:00 Blood Pressure 140/68 H 01/18/25 04:00 Pulse Oximetry 98 01/18/25 04:00 Oxygen Delivery Method Room Air 01/18/25 04:00 Temperature 97.2 F L 01/18/25 04:00 Pulse Rate 80 01/18/25 06:45 Respiratory Rate 16 01/18/25 07:00 Blood Pressure 102/69 01/18/25 07:02 Pulse Oximetry 94 01/18/25 06:45 Oxygen Delivery Method Room Air 01/18/25 04:00 Medications Administered Medications: Discontinued Medications Generic Name Dose Route Start Last Admin Trade Name Freq PRN Reason Stop Dose Admin Diazepam 5 mg 01/18/25 04:04 01/18/25 04:02 Diazepam 5 Mg/Ml Inj IM 01/18/25 04:05 5 mg ONCE ONE Administration Sodium Chloride 1,000 mls @ 1,000 mls/hr 01/18/25 06:15 01/18/25 06:30 0.9 % Sodium Chloride 1000 Ml IV 01/18/25 07:14 1,000 mls/hr .Q1H TOY Administration Medical Decision Making Lab Data Labs: Lab Results 01/18/25 Range/Units 04:25 WBC 19.86 H (4.50-11.00) K/uL RBC 5.29 (4.30-5.90) m/uL Hgb 15.9 (13.5-17.5) gm/dL Hct 49.1 (37.0-53.0) % MCV 93 (80-100) fL MCH 30 (26-34) pg MCHC 32 (32-36) gm/dL RDW Coeff of Ab 11.9 (11.5-15.5) % Plt Count 442 H (140-440) K/uL Neut % (Auto) 34.8 L (42.0-72.0) % Lymph % (Auto) 54.3 H (20-44) % [place] % (Auto) 7.9 (0.0-11.0) % Eos % (Auto) 1.9 (0.0-7.0) % Baso % (Auto) 0.4 (0.0-3.0) % Neut # (Auto) 6.90 (1.7-7.0) K/uL Lymph # (Auto) 10.80 H (0.90-2.90) K/uL [place] # (Auto) 1.60 H (0.00-0.90) K/UL Eos # (Auto) 0.40 (0.00-0.50) K/uL Baso # (Auto) 0.10 (0.00-0.30) K/uL Abs Immat Gran (auto) 0.10 (0.00-0.30) K/uL Imm/Tot Granulo (auto) 0.7 % Sodium 138 (135-149) mmol/L Potassium 3.7 (3.6-5.1) mmol/L Chloride 100 (96-114) mmol/L Carbon Dioxide 6 L* (20-32) mmol/L Anion Gap 32 H (7-15) mEq/L BUN 10 (5-24) mg/dL Creatinine 0.9 (0.5-1.5) mg/dL Estimated GFR 125 ml/min Glucose 104 (60-115) mg/dL Calcium 9.9 (8.4-10.6) mg/dL Total Bilirubin 0.8 (0.1-1.5) mg/dL Direct Bilirubin 0.4 (0.0-0.5) mg/dL AST 44 H (12-35) U/L ALT 38 (4-50) U/L Alkaline Phosphatase 64 (40-150) U/L Total Protein 9.4 H (6.0-8.3) g/dL Albumin 5.5 H (3.3-5.0) g/dL Salicylates < 1.0 L (1.0-10) mg/dL Acetaminophen < 10.0 (10.0-30.0) ug/mL Ethyl Alcohol < 0.01 (0.01-0.03) % Discharge Plan Discharge Clinical Impression: Epileptic seizure Patient Disposition: Home, Self-Care Condition: Stable Additional Instructions: You should call your neurologist's office to day and let them know what happened. If they ask, you did receive 5 mg of diazepam today. We did not change your Lamictal dosage-you should discuss with your neurologist if your dosage should be changed. Avoid triggers. Prescriptions: No Action lamotrigine [Lamictal] 150 mg tablet 150 mg PO BID sertraline [Zoloft] 50 mg tablet 50 mg PO DAILY chlorhexidine gluconate [Paroex Oral Rinse] 0.12 % mouthwash 15 ml buccal BID Qty: 240 1RF Rx Instructions: swish and spit 2x per day Follow Up/Referrals: Provider,Not a Local [Primary Care Provider, Family Practice] Stand Alone Forms: [employer] Info Instructions
[2025-01-18 05:13] LABS: Hematocrit* 49.1 % (37.0-53.0); Hemoglobin* 15.9 gm/dL (13.5-17.5); Immature Granulocytes Pct Auto 0.7 %; Mean Corpuscular HGB Conc 32 gm/dL (32-36); Mean Corpuscular Hemoglobin 30 pg (26-34); Mean Corpuscular Volume 93 fL (80-100); RDW Coefficient of Variation % 11.9 % (11.5-15.5); Red Blood Count* 5.29 m/uL (4.30-5.90); White Blood Count* 19.86 K/uL (4.50-11.00)
[2025-01-18 05:17] LABS: Immature Granulocytes Abs Auto 0.10 K/uL (0.00-0.30); Lymphocytes Absolute Auto 10.80 K/uL (0.90-2.90); Slide Review Reflex No
[2025-01-18 05:34] LABS: Albumin* 5.5 g/dL (3.3-5.0); Chloride* 100 mmol/L (96-114); Potassium* 3.7 mmol/L (3.6-5.1); Sodium* 138 mmol/L (135-149)
[2025-01-18 05:37] LABS: Alanine Aminotransferase* 38 U/L (4-50); Alkaline Phosphatase* 64 U/L (40-150); Aspartate Amino Transferase* 44 U/L (12-35); Bilirubin Direct* 0.4 mg/dL (0.0-0.5); Bilirubin Total* 0.8 mg/dL (0.1-1.5); Blood Urea Nitrogen* 10 mg/dL (5-24); Calcium* 9.9 mg/dL (8.4-10.6); Creatinine* 0.9 mg/dL (0.5-1.5); Estimated Glomerular Filt Rate 125 ml/min; Glucose* 104 mg/dL (60-115); Total Protein* 9.4 g/dL (6.0-8.3)
[2025-01-18 05:43] LABS: Anion Gap 32 mEq/L (7-15)
[2025-01-18 05:48] LABS: Acetaminophen* < 10.0 ug/mL (10.0-30.0); Carbon Dioxide* 6 mmol/L (20-32); Ethanol* < 0.01 % (0.01-0.03); Salicylate* < 1.0 mg/dL (1.0-10)
== END 2025-01-18 08:33 | disposition home or self-care (01) ==
LOC: ED 07:59
PROVIDERS: Emergency Provider Family Medicine
DX: G40.909 Epilepsy, unspecified, not intractable, without status epilepticus (principal)
CPT/HCPCS: 36415; 80048; 80076; 80143; 80179; 80306; 82077; 85025; 93005; 94761; 96360; 96372; 99285; J3360; J7030